=== PATIENT | female | born 1980 | race Two or more races ===

== ENCOUNTER → 2021-02-04 | Emergency (ER) | payer OTHER ==
[~2021-02-04] VITALS: Ht 157.5 cm; Wt 66.2 kg
[~2021-02-04] MED LIST: LEVOTHYROXINE100 MC1; ZESTRIL10 M1
== END | disposition home or self-care (01) ==
LOC: ER 02:54
DX: N83.202 Unspecified ovarian cyst, left side (principal); R10.13 Epigastric pain